=== PATIENT | male | born 1990 | race American Indian/Alaskan Native ===

== ENCOUNTER 2017-08-16 13:10 | Emergency (ER) | payer SELFPAY ==
[2017-08-16 13:19] VITALS: BP 124/82
--- NOTE | 2017-08-16 14:50 | Emergency Department Report ---
ED Dysuria HPI - HPI Chief Complaint: Urogenital-Male Stated Complaint: PENILE DISCHARGE Time Seen by Provider: 08/16/17 14:40 Duration: 4 Days Severity: Mild Symptoms: Dysuria: Yes, Frequency: No, Suprapubic Pain: No, Flank Pain: No, Fever: No, Hematuria: No, Abdominal Pain: No, Previous UTI's: No Other History: HOMOSEX MALE W PENILE DC ED Review of Systems ROS: Stated complaint: PENILE DISCHARGE Other details as noted in HPI Comment: All other systems reviewed and negative Genitourinary: dysuria ED Past Medical Hx - Past Medical History Previous Medical History?: No - Surgical History Past Surgical History?: No - Social History Smoking Status: Current Every Day Smoker Substance Use Type: Alcohol Dysuria Exam - Exam General: Vital signs noted. No distress. Alert and acting appropriately. Exam: Yes Moist Mucous Membranes, No CVA Tenderness, No Abdominal Tenderness, No Rigidity or Guarding Exam: NO LESIONS, SORES. PENILE DC ED Course Vital Signs 08/16/17 13:16 Temperature 98.8 F Pulse Rate 84 Respiratory 16 Rate Blood Pressure 124/82 O2 Sat by Pulse 99 Oximetry - Reevaluation(s) Reevaluation #1: 08/16/17 16:17 TO ER W PENILE DC HOMOSEXUAL MALE NEW PARTNER DC FOR SEVERAL DAYS NO FEVER NO HIV LAST TEST UA NOTED EMPIRIC TX PER [facility] URINE GC ORDERED. DC HOME W DC POC INFORMED OF IMPORT OF SAFE SEX ETC. ED Medical Decision Making - Medical Decision Making SEE NOTE - Differential Diagnosis STD Critical care attestation.: If time is entered above; I have spent that time in minutes in the direct care of this critically ill patient, excluding procedure time. ED Disposition Clinical Impression: STD (male) Disposition: DC-01 TO HOME OR SELFCARE Is pt being admited?: No Does the pt Need Aspirin: No Condition: Stable Instructions: Sexually Transmitted Diseases (ED), Safe Sex (ED) Additional Instructions: SAFE SEX Referrals: PRIMARY CARE, [Primary Care Provider] - 3-5 Days Time of Disposition: 16:10
[2017-08-16 15:50] LABS: Bilirubin,Urine NEG (Negative); Blood,Urine NEG (Negative); Ketones,Urine NEG (Negative); Leukocyte Esterase,Urine LG (Negative); Nitrite,Urine NEG (Negative); Protein,Urine <15 mg/dL mg/dL (Negative); Urobilinogen,Urine < 2.0 mg/dL (<2.0)
[2017-08-16] MEDS ORDERED: ROCEPHIN IM ONE (15:55)
[2017-08-16] MEDS ORDERED: XYLOCAINE 1% MPF 5 mL INFILTRATI ONE (15:55)
[2017-08-16] MEDS ORDERED: ZITHROMAX PO ONE (15:56)
== END 2017-08-16 16:34 | disposition home or self-care (01) ==
LOC: ED 13:10
DX: A64 Unspecified sexually transmitted disease (principal); F17.200 Nicotine dependence, unspecified, uncomplicated
CPT/HCPCS: 81001; 96372; 99282; J0696

== ENCOUNTER 2017-08-22 15:36 | Emergency (ER) | payer OTHER ==
[2017-08-22 16:32] VITALS: BP 121/71
[2017-08-22 18:20] LABS: Bilirubin,Urine NEG (Negative); Blood,Urine NEG (Negative); Ketones,Urine NEG (Negative); Leukocyte Esterase,Urine NEG (Negative); Nitrite,Urine NEG (Negative); Urobilinogen,Urine < 2.0 mg/dL (<2.0); WBC,Urine < 1.0 /HPF (0.0-6.0)
--- NOTE | 2017-08-22 18:22 | Emergency Department Report ---
ED Male HPI - General Chief complaint: Urogenital-Male Stated complaint: PENILE PAIN Time Seen by Provider: 08/22/17 17:39 Source: patient Mode of arrival: Ambulatory Limitations: No Limitations - History of Present Illness Initial comments: This is a 27-year-old male nontoxic, well nourished in appearance, no acute signs of distress presents to the ED with c/o of penile pain in the tip and dysuria x1 week. Patient stated he was here last week and received Rocephin and Azithromycin for possible STD. Patient stated these are new symptoms but the penile discharge has been subsided. Patient denies any penile discharge, penile ulcers/lesions, testicular pain, testicular swelling, fever, chills, headache, nausea, vomiting, chest pain, shortness of breathe, numbness, tingling, stiff neck. Patient denies any allergies or PMH. Denies concerns about STD. Patient stated had a negative HIV test 1 month ago. MD Complaint: dysuria, other (penile tip pain) -: week(s) (1) Location: penis Radiation: none Severity: mild Severity scale (0 -10): 4 Quality: burning Consistency: constant Improves with: none Worsens with: urination dysuria. denies: discharge, swelling, mass, rash, urinary retention, blood in urine, fever, nausea/vomiting, incontinence - Related Data Sexually active: Yes Previous Rx's Medication Instructions Recorded Last Taken Type Sulfamethoxazole/Trimethoprim 1 each PO BID #14 tablet 08/22/17 Unknown Rx [Bactrim DS TAB] Allergies Allergy/AdvReac Type Severity Reaction Status Date / Time No Known Allergies Allergy Unverified 08/16/17 13:15 ED Review of Systems ROS: Stated complaint: PENILE PAIN Other details as noted in HPI Constitutional: denies: chills, fever Eyes: denies: eye pain, eye discharge, vision change ENT: denies: ear pain, throat pain Respiratory: denies: cough, shortness of breath, wheezing Cardiovascular: denies: chest pain, palpitations Endocrine: no symptoms reported Gastrointestinal: denies: abdominal pain, nausea, diarrhea Genitourinary: dysuria, other (penile pain). denies: urgency Musculoskeletal: denies: back pain, joint swelling, arthralgia Skin: denies: rash, lesions Neurological: denies: headache, weakness, paresthesias Psychiatric: denies: anxiety, depression Hematological/Lymphatic: denies: easy bleeding, easy bruising ED Past Medical Hx - Past Medical History Previous Medical History?: No - Surgical History Past Surgical History?: No - Social History Smoking Status: Current Every Day Smoker Substance Use Type: Alcohol - Medications Home Medications: Home Medications Medication Instructions Recorded Confirmed Last Taken Type Sulfamethoxazole/Trimethoprim 1 each PO BID #14 tablet 08/22/17 Unknown Rx [Bactrim DS TAB] ED Physical Exam - General Limitations: No Limitations General appearance: alert, in no apparent distress - Head Head exam: Present: atraumatic, normocephalic, normal inspection - Eye Eye exam: Present: normal appearance, PERRL, EOMI. Absent: scleral icterus, conjunctival injection, nystagmus, periorbital swelling, periorbital tenderness Pupils: Present: normal accommodation - ENT ENT exam: Present: normal exam, normal orophraynx, mucous membranes moist, TM's normal bilaterally, normal external ear exam - Neck Neck exam: Present: normal inspection, full ROM. Absent: tenderness, meningismus, lymphadenopathy, thyromegaly - Respiratory Respiratory exam: Present: normal lung sounds bilaterally. Absent: respiratory distress, wheezes, rales, rhonchi, stridor, chest wall tenderness, accessory muscle use, decreased breath sounds, prolonged expiratory - Cardiovascular Cardiovascular Exam: Present: regular rate, normal rhythm, normal heart sounds. Absent: bradycardia, tachycardia, irregular rhythm, systolic murmur, diastolic murmur, rubs, gallop - GI/Abdominal GI/Abdominal exam: Present: soft, normal bowel sounds. Absent: distended, tenderness, guarding, rebound, rigid, diminished bowel sounds - Rectal Rectal exam: Present: deferred - exam: Present: normal inspection. Absent: testicular tenderness, urethral discharge, scrotal swelling, vertical testicular lie External exam: Present: normal external exam. Absent: erythema, swelling, lesions, lacerations, ecchymosis, bleeding - Extremities Exam Extremities exam: Present: normal inspection, full ROM, normal capillary refill. Absent: tenderness, pedal edema, joint swelling, calf tenderness - Back Exam Back exam: Present: normal inspection, full ROM. Absent: tenderness, CVA tenderness (R), CVA tenderness (L), muscle spasm, paraspinal tenderness, vertebral tenderness, rash noted - Neurological Exam Neurological exam: Present: alert, oriented X3, CN II-XII intact, normal gait, reflexes normal - Psychiatric Psychiatric exam: Present: normal affect, normal mood - Skin Skin exam: Present: warm, dry, intact, normal color. Absent: rash ED Course Vital Signs 08/22/17 16:28 Temperature 98.2 F Pulse Rate 79 Respiratory 18 Rate Blood Pressure 121/71 O2 Sat by Pulse 100 Oximetry - Reevaluation(s) Reevaluation #1: 08/22/17 18:38 Patient is speaking in full sentences with no signs of distress noted. ED Medical Decision Making - Medical Decision Making This is a 27-year-old male that presents with possible UTI. Patient is c/o of dysuria and penile pain. Upon exam there is no testicular pain, swelling, or penile ulcers. Due to patient having symptoms of 1 week, patient received Bactrim empirically for possible UTI. Ua obtained within normal limits. Patient was instructed to follow-up with a primary care doctor in 3-5 days or if symptoms worsen and continue to return to the emergency room as soon as possible. At time time of discharge, the patient does not seem toxic or ill in appearance. No acute signs of distress noted. Patient agrees to discharge treatment plan of care. No further questions noted by the patient. Critical care attestation.: If time is entered above; I have spent that time in minutes in the direct care of this critically ill patient, excluding procedure time. ED Disposition Clinical Impression: Penile pain UTI (urinary tract infection) Qualifiers: Urinary tract infection type: site unspecified Hematuria presence: without hematuria Qualified Code(s): N39.0 - Urinary tract infection, site not specified Disposition: - TO HOME OR SELFCARE Is pt being admited?: No Does the pt Need Aspirin: No Condition: Stable Instructions: Sulfamethoxazole/Trimethoprim (By mouth), Urinary Tract Infection in Men (ED) Additional Instructions: Follow-up with a primary care doctor in 3-5 days or if symptoms worsen and continue return to emergency room as soon as possible. Prescriptions: Sulfamethoxazole/Trimethoprim [Bactrim DS TAB] 1 each PO BID #14 tablet Referrals: KRYSTINA DICK MD [Primary Care Provider] - 3-5 Days ELAB LIVINGSTON MD [Staff Physician] - 3-5 Days [facility] [Outside] - 3-5 Days [facility] [Outside] - 3-5 Days Forms: Work/School Release Form(ED)
== END 2017-08-22 20:22 | disposition home or self-care (01) ==
LOC: ED 15:36
DX: N48.89 Other specified disorders of penis (principal); N39.0 Urinary tract infection, site not specified; F17.200 Nicotine dependence, unspecified, uncomplicated
CPT/HCPCS: 81001; 87591; 99283